=== PATIENT | female | born 1950 | race Two or more races ===

== ENCOUNTER 2018-02-28 22:36 | Emergency (ER) | payer OTHER ==
[~2018-02-28] VITALS: Ht 154.9 cm; Wt 68.0 kg
[~2018-02-28 22:36] MED LIST: EVISTA60 MG; LOSARTAN-HCTZ1 EAC2; OMEPRAZOLE20 M1; ORPH100T; VITAMIN C1000 MG
[2018-02-28] MEDS ORDERED: ZOCOR5 MG (22:45)
== END 2018-03-01 16:20 | disposition home or self-care (01) ==
LOC: ER 22:36
DX: M62.830 Muscle spasm of back (principal); N28.1 Cyst of kidney, acquired; M54.5 Low back pain